=== PATIENT | female | born 1990 | race Caucasian/White ===

== ENCOUNTER 2018-05-16 14:26 | Outpatient (CLI) | payer MEDICAID ==
[~2018-05-16] VITALS: Ht 152.4 cm; Wt 78.0 kg
[2018-05-16 14:38] VITALS: BP 119/67; PULSE 95; RESP 18; Ht 152.4 cm; Wt 78.0 kg
[2018-05-16] MEDS ORDERED: PREN1TAB71 PO (14:40)
--- NOTE | 2018-05-16 16:12 | HP ---
Date/Time of Note Date/Time of Note DATE: 05/16/18 TIME: 16:08 OB - History Hx of Present Free Text/Dictation 27 YO with IUP at 34.4 weeks with EDC 06/23/2018 who was at [facility] today and her BP was 144/79. she denies headache, visual changes or RUQ pain. she reports good FM. she denies LOF per vagina or vaginal bleeding or UC. she has normal BP in L&D. UC neg for protein. S=D on sono. normal RAMESH. Category one NST, Normal labs except for anemia. I explained the PIH precautions and asked her to go back to [facility] on Saturday for BP check. Care: Good Care Ultrasounds: Normal mid trimester US Obstetrical Complications: None Medical Complications: None Past Family/Social History * Past Medical, Surgical, Family and Obstetric Histories reviewed from chart. OB Admission Exam Vital Signs Vital Signs Vital Signs Date Temp Pulse Resp B/P (MAP) Pulse Ox O2 O2 Flow FiO2 Time Delivery Rate 05/16/18 98.3 95 18 119/67 Room Air 14:38 (84) Physical Exam HEENT: WNL Heart: Rhythm Normal Lungs: Clear, Equal Abdomen: WNL Extremities: Normal Reflexes: Normal Last 72 hours Lab Results CBC & BMP 05/16/18 15:00 Liver Function Test 05/16/18 15:00 Alanine Aminotransferase (ALT/SGPT) 22 Albumin 3.4 Alkaline Phosphatase 116 Aspartate Amino Transf (AST/SGOT) 22 Direct Bilirubin 0.00 Total Protein 6.8 OB Assessment/Plan Other Assessment: IUP at 34.4 weeks. No evidence of preeclampsia Other plan: f/u at [facility] in 3 days for BP check PIH precautions given. LEATHA GARCIA MD May 16, 2018 16:12
--- NOTE | 2018-05-16 17:16 | TRIAGE ---
OB Triage Datetime Report Generated by CPN: 05/16/2018 17:16 Datetime: 05/16/2018 16:01 Stage of : OB Triage Datetime: 05/16/2018 15:52 Labor Evaluation Frequency: 0 Monitor Mode: External Pattern: Normal: <= 5 Contractions in 10 Minutes Resting Tone Slana: Relaxed Heart Rate FHR Baseline Rate: 135 Monitor Mode: External US Variability: Moderate 6-25 bpm Accelerations: 10X10 Decelerations: None Category: Category I Pain Assessment Pain Scale: 0 Pain Presence: None/Denies Pain Type: N/A Pain Goal: 3 Pain Relief Measures: Comfort Measures Datetime: 05/16/2018 14:50 Labor Evaluation Frequency: irreg Monitor Mode: External Duration (sec)2399: 50-60 Quality: Mild Pattern: Normal: <= 5 Contractions in 10 Minutes Resting Tone Slana: Relaxed Contraction Comments: pt denies any pain/ ucs Heart Rate FHR Baseline Rate: 140 Variability: Moderate 6-25 bpm Accelerations: 15X15 Decelerations: None Category: Category I Pain Presence: None/Denies Pain Type: N/A Datetime: 05/16/2018 14:34 Assessment Type: Triage Maternal Assessment Level of Consciousness: Fully Conscious DTR's/Clonus: DTRs 2+ Headache: Denies Blurred Vision: No Respiratory Effort: Unlabored; Regular Rhythm; Equal Expansion Breath Sounds, Left: Clear and Equal Breath Sounds, Right: Clear and Equal Nausea/Vomiting: Denies RUQ Epigastric Pain: Denies Lower Extremities Edema: None Degree: None Upper Extremities Edema: None Degree: None Facial Edema: None Fall Risk Assessment History of Falling: (0) No Secondary Diagnosis: (0) No Ambulatory Aid: (0) Bedrest/Nurse Assist IV Therapy: (0) No Gait: (0) Normal/Bedrest/Immobile Mental Status: (0) Oriented to Own Ability Fall Score: 0 Fall Risk Score Definition: No Risk: No action required Datetime: 05/16/2018 14:32 Time of Arrival: 05/16/2018 15:20 EGA: 34.4 Arrived By: Wheelchair Arrived From: Office Movement: Present Contractions: Denies/Absent Rupture of Membranes: Denies Vaginal Bleeding: None Vaginal Discharge: Denies Recent Sexual Intercouse: Denies Abdominal Trauma: Not Applicable Patient Complaints: None Time Provider Notified: 05/16/2018 14:50 Provider Notified: JOSE Initial Plan: R/O preeclampsia / efm/ vitals
== END 2018-05-16 16:12 | disposition home or self-care (01) ==
LOC: OBT 14:26 → L-D 14:28 → OBT 16:12
PROVIDERS: ATTEND Specialist
DX: O26.893 Other specified pregnancy related conditions, third trimester (principal); Z3A.34 34 weeks gestation of pregnancy; R10.11 Right upper quadrant pain
CPT/HCPCS: 76815; 76818; 80053; 81001; 84560; 85025; 85610; 85730; Z7500; G0463

== ENCOUNTER 2018-06-06 10:28 | Outpatient (CLI) | payer MEDICAID ==
[~2018-06-06] VITALS: Ht 152.4 cm; Wt 79.7 kg
[~2018-06-06 10:28] MED LIST: PREN1TAB71 PO
[2018-06-06 11:13] VITALS: Ht 152.4 cm; Wt 79.7 kg
[2018-06-06 11:14] VITALS: BP 122/58; PULSE 80; RESP 18
--- NOTE | 2018-06-06 13:38 | TRIAGE ---
OB Triage Datetime Report Generated by CPN: 06/06/2018 13:38 Datetime: 06/06/2018 13:23 Stage of : OB Triage Datetime: 06/06/2018 13:14 Stage of : OB Triage Datetime: 06/06/2018 12:50 Labor Evaluation Frequency: 0 Monitor Mode: External Pattern: Normal: <= 5 Contractions in 10 Minutes Resting Tone [employer]: Relaxed Heart Rate FHR Baseline Rate: 140 Monitor Mode: External US Variability: Moderate 6-25 bpm Accelerations: 10X10 Decelerations: None Category: Category I Pain Assessment Pain Scale: 0 Pain Presence: None/Denies Pain Type: N/A Pain Goal: 3 Pain Relief Measures: Comfort Measures Datetime: 06/06/2018 11:49 Labor Evaluation Frequency: 0 Monitor Mode: External Pattern: Normal: <= 5 Contractions in 10 Minutes Resting Tone [employer]: Relaxed Heart Rate FHR Baseline Rate: 135 Monitor Mode: External US Variability: Moderate 6-25 bpm Accelerations: 10X10 Decelerations: None Category: Category I Pain Assessment Pain Scale: 0 Pain Presence: None/Denies Pain Type: N/A Pain Goal: 3 Pain Relief Measures: Comfort Measures Datetime: 06/06/2018 11:04 Stage of : OB Triage Datetime: 06/06/2018 10:40 Stage of : OB Triage Assessment Type: Triage Maternal Assessment Level of Consciousness: Fully Conscious DTR's/Clonus: DTRs 2+; No Clonus Headache: Denies Blurred Vision: No Respiratory Effort: Unlabored; Regular Rhythm; Equal Expansion Breath Sounds, Left: Clear and Equal Breath Sounds, Right: Clear and Equal Nausea/Vomiting: Denies RUQ Epigastric Pain: Denies Facial Edema: None Temperature Route: Axillary Fall Risk Assessment History of Falling: (0) No Secondary Diagnosis: (0) No Ambulatory Aid: (0) Bedrest/Nurse Assist IV Therapy: (0) No Gait: (0) Normal/Bedrest/Immobile Mental Status: (0) Oriented to Own Ability Fall Score: 0 Fall Risk Score Definition: No Risk: No action required Labor Evaluation Frequency: 0 Monitor Mode: External Pattern: Normal: <= 5 Contractions in 10 Minutes Resting Tone [employer]: Relaxed Heart Rate FHR Baseline Rate: 135 Monitor Mode: External US Variability: Moderate 6-25 bpm Accelerations: 10X10 Decelerations: None Category: Category I Pain Assessment Pain Scale: 4 Pain Presence: Constant Pain Type: Ache Pain Location: Head Pain Goal: 3 Pain Relief Measures: Comfort Measures Datetime: 06/06/2018 10:38 Time of Arrival: 06/06/2018 10:26 EGA: 37.4 Arrived By: Ambulatory Arrived From: Dr. Office Chief Complaint: REFERRED FROM DR OFFICE TO R/O PIH, SLIGHT H/A, DENIES EPIGASTRIC PAIN OR DIZZINES S. DENIES LEAKING, BLEEDING OR UC'S Movement: Present Contractions: Irregular Rupture of Membranes: Denies Vaginal Discharge: Denies Recent Sexual Intercouse: Denies Abdominal Trauma: Not Applicable Patient Complaints: Headache Time Provider Notified: 06/06/2018 11:05 Provider Notified: yasharpour Initial Plan: monitor, u/a c_s, pih panel, efw, sahra Datetime: 06/06/2018 10:30 EGA: 34.4 Datetime: 05/16/2018 14:34 Fall Score: 0 Fall Risk Score Definition: No Risk: No action required Datetime: 05/16/2018 14:32 EGA: 34.4
--- NOTE | 2018-06-06 15:02 | PN ---
Triage Information Date/Time 06/06/1807/20/1457 Reason for visit: headache and f/u for high BP Weeks of Gestation 37w4d /Para Diabetes: none Hypertention: induced Objective Vital Signs Date Temp Pulse Resp B/P (MAP) Pulse Ox O2 O2 Flow FiO2 Time Delivery Rate 06/06/18 97.9 80 18 122/58 11:14 (79) Heart Rate: 150's Contractions: None Results/Medications Result Diagram: 06/06/18 1100 06/06/18 1100 Results 24 hrs Laboratory Tests Test 06/06/18 10:45 06/06/18 11:00 Urine Color YELLOW Urine Clarity SLIGHTLY CLOUDY A Urine pH 7.0 Urine Specific [place] 1.008 Urine Ketones NEGATIVE Urine Nitrite NEGATIVE Urine Bilirubin NEGATIVE Urine Urobilinogen NEGATIVE Urine Leukocyte Esterase TRACE A Urine Microscopic RBC 2 Urine Microscopic WBC 2 Urine Squamous Epithelial Cells FEW Urine Bacteria FEW A Urine Hemoglobin NEGATIVE Urine Glucose NEGATIVE Urine Total Protein NEGATIVE White Blood Count 10.2 # Red Blood Count 3.79 L Hemoglobin 10.1 L Hematocrit 32.1 L Mean Corpuscular Volume 84.7 Mean Corpuscular Hemoglobin 26.6 L Mean Corpuscular Hemoglobin Concent 31.5 L Red Cell Distribution Width 15.1 H Platelet Count 250 Mean Platelet Volume 10.7 H Immature Granulocytes % 1.700 H Neutrophils % 69.4 Lymphocytes % 18.3 Monocytes % 8.5 Eosinophils % 1.8 Basophils % 0.3 Nucleated Red Blood Cells % 0.0 Immature Granulocytes # 0.170 H Neutrophils # 7.1 Lymphocytes # 1.9 Monocytes # 0.9 Eosinophils # 0.2 Basophils # 0.0 Nucleated Red Blood Cells # 0.0 Prothrombin Time 13.3 Prothrombin Time Ratio 1.0 INR International Normalized Ratio 1.00 Activated Partial Thromboplast Time 30.3 Fibrinogen 447.0 Sodium Level 135 Potassium Level 4.0 Chloride Level 107 Carbon Dioxide Level 22 Anion Gap 6 Blood Urea Nitrogen 9 Creatinine 0.35 L Est Glomerular Filtrat Rate mL/min > 60 Glucose Level 87 Uric Acid 1.3 L Calcium Level 9.7 Total Bilirubin 0.3 Direct Bilirubin 0.00 Indirect Bilirubin 0.3 Aspartate Amino Transf (AST/SGOT) 16 Alanine Aminotransferase (ALT/SGPT) 17 Alkaline Phosphatase 124 H Total Protein 6.6 Albumin 3.3 Globulin 3.30 H Albumin/Globulin Ratio 1.00 Imaging Results BPP 8 RAMESH 15 EFW 3375 Disposition: Discharge Assessment/Plan A IUP 37w4d headache resolved GHTN normotensive P F/U on saturday triage or clinic JUAN ERNST MD Jun 06, 2018 15:02
== END 2018-06-06 13:20 | disposition home or self-care (01) ==
LOC: L-D 10:28 → OBT 10:28
PROVIDERS: ATTEND Specialist
DX: O13.3 Gestational [pregnancy-induced] hypertension without significant proteinuria, third trimester (principal); Z3A.37 37 weeks gestation of pregnancy
CPT/HCPCS: 76815; 76818; 80053; 81001; 84560; 85025; 85384; 85610; 85730; 87086; Z7500; G0463

== ENCOUNTER 2018-06-19 16:39 | Inpatient (IN) | payer MEDICAID ==
[~2018-06-19] VITALS: Ht 154.9 cm; Wt 79.5 kg
[2018-06-19 17:05] VITALS: Ht 154.9 cm; Wt 79.5 kg
[2018-06-19] MEDS ORDERED: LACTATED RINGER'S 1,000 ML IV SCH (18:50)
[2018-06-19] MEDS ORDERED: OXYTOCIN 30 UNITS/LR 500 ML IV SCH ×3 (19:00→19:30)
[2018-06-19] MEDS ORDERED: BUTORPHANOL 2 MG INJ IV PRN (19:00)
[2018-06-19] MEDS ORDERED: AMPICILLIN 2 GM/NS (PMX) 100 ML IVPB ONE (19:00)
[2018-06-19] MEDS ORDERED: OXYTOCIN 30 UNITS/LR 500 ML IV PRN ×2 (19:00→23:30)
[2018-06-19] MEDS ORDERED: LIDOCAINE 1% (MPF) 30 ML INJ INJ PRN (19:00)
[2018-06-19] MEDS ORDERED: METHYLERGONOVINE 0.2 MG INJ IM PRN ×2 (19:00→23:30)
[2018-06-19] MEDS ORDERED: CARBOPROST 250 MCG INJ IM PRN ×2 (19:00→23:30)
[2018-06-19] MEDS ORDERED: MISOPROSTOL 200 MCG TAB PR PRN ×2 (19:00→23:30)
[2018-06-19] MEDS ORDERED: AMPICILLIN 1 GM/NS (PMX) 50 ML IVPB SCH (21:00)
--- NOTE | 2018-06-19 21:34 | HP ---
Date/Time of Note Date/Time of Note DATE: 06/19/18 TIME: 21:26 OB - History Hx of Present Free Text/Dictation 27y.o at 39w3d in activelabor with intact membrane, initial VE 5/80/-2 with bulging bag EFM CAT I UC q 2-4min had unevenful course which started at 9weeks admitted for expectant management. GBS neg but wasnt avalable, so gave one dose of ampicillin. Chief Complaint: uc's Estimated Due Date: Jun 23, 2018 : 3 Para: 2 Spontaneous : 0 Therapeutic : 0 Care: Good Care Ultrasounds: Normal mid trimester US Obstetrical Complications: None Medical Complications: None Past Family/Social History * Past Medical, Surgical, Family and Obstetric Histories reviewed from chart. Blood Type: O+ Rubella: immune RPR/VDRL: Negative GBS Status: Negative HBsAG: Negative OB Admission Exam Physical Exam HEENT: WNL Heart: Rhythm Normal Lungs: Clear, Equal Abdomen: WNL Extremities: Normal Reflexes: Normal Cervical Dilatation: 5cm Effacement: Other (80) Station: -2 Membranes: Intact Amniotic Fluid: Unevaluable Heart Rate: 130's Accelerations: Accelerations Present Decelerations: No Decelerations Varibility: Moderate Contractions on Admission: < 5 Minutes Apart Intensity: Firm Last 72 hours Lab Results CBC & BMP 06/19/18 18:00 OB Assessment/Plan Reason for admission: active labor Other Assessment: IUP 39w3d Plan: Expectant Management JUAN ERNST MD Jun 19, 2018 21:34
--- NOTE | 2018-06-19 21:37 | LDN ---
Date/Time of Note Date/Time of Note DATE: 06/19/18 TIME: 21:34 Delivery Summary of normal female Weeks of Gestation 39w3d Placenta Delivered: Spontaneously Meconium: none Episiotomy: No Perineal laceration: 1 Laceration repair: 0000 ch gut Anesthesia type: None Estimated blood loss: 50 Sponge & Needle done & correct: Yes All needle counts correct: Yes Any foreign bodies felt in the: No Infant Delivery Information Sex Sex: female Apgars 1 Minute: 9 5 Minute: 9 Suctioning Nose & mouth suctioned at rivera: No Delee suction performed: No Umbilical Cord Umbilical cord with: 3 Vessels Cord presentations: no nuchal cord Cord Blood was obtained: Yes Mother & Baby Disposition Disposition Mom & Baby to Maternity; Good: Yes Mom transferred to: Other () Baby to NICU: No (ostpartum) JUAN ERNST MD Jun 19, 2018 21:37
[2018-06-19 23:00] VITALS: BP 119/60; PULSE 80; RESP 16
[2018-06-19] MEDS ORDERED: OXYCODONE/ASPIRIN (4.88/325) TAB PO PRN ×2 (23:30)
[2018-06-19] MEDS ORDERED: ZOLPIDEM 5 MG TAB PO PRN (23:30)
[2018-06-19] MEDS ORDERED: LANOLIN HPA 1 PKT TOP PRN (23:30)
[2018-06-19] MEDS ORDERED: WITCH HAZEL/GLYCERIN PAD PR PRN (23:30)
[2018-06-19] MEDS ORDERED: BENZOCAINE 20% 56 ML SPRAY TOP PRN (23:30)
[2018-06-20 00:06] VITALS: BP 119/63; PULSE 85; RESP 18
[2018-06-20] MEDS: IBUPROFEN 600 MG TAB PO SCH ×4 (00:43→17:45)
[2018-06-20 03:58] VITALS: BP 117/59; PULSE 84; RESP 18
[2018-06-20 08:00] VITALS: BP 114/56; PULSE 81; RESP 18
[2018-06-20] MEDS: SENNA/DOCUSATE NA (8.6MG/50MG) TAB PO SCH ×2 (09:21→21:25)
[2018-06-20 10:12] VITALS: BP 114/56; PULSE 81; RESP 18
[2018-06-20 16:26] VITALS: BP 111/58; PULSE 77; RESP 18
--- NOTE | 2018-06-20 18:28 | DS ---
Date/Time of Note Date/Time of Note DATE: 06/20/18 TIME: 18:28 Obstetrical Discharge Record Final Diagnosis Final Diagnosis: Term delivered Vaginal Delivery Obstetrical Delivery: Spontaneous Complications Augmentation: No Induction: Yes Rupture of Membranes: No Condition on Discharge Physical Assessment Voiding: Yes Bowel Movement: Yes Breast: Soft, non-tender, Filling Fundus: Firm Abdomen and Incision: soft, not tender Calf Tenderness: Yes Patient Condition: Good LEATHA GARCIA MD Jun 20, 2018 18:28
[2018-06-20 20:00] VITALS: BP 122/75; PULSE 85; RESP 16
[2018-06-21] MEDS: IBUPROFEN 600 MG TAB PO SCH ×2 (00:25→05:56)
[2018-06-21 04:13] VITALS: BP 96/51; PULSE 66; RESP 20
[2018-06-21 08:00] VITALS: BP 104/53; PULSE 74; RESP 18
[2018-06-21] MEDS: SENNA/DOCUSATE NA (8.6MG/50MG) TAB PO SCH (08:59)
[2018-06-21] MEDS ORDERED: DIPHTH/TET/ACEL PERTUSS (ADULT) 0.5 ML VIAL IM* ONE (09:00)
--- NOTE | 2018-06-21 11:00 | PN ---
Date/Time of Note Date/Time of Note DATE: 06/21/18 TIME: 10:58 OB Subjective Subjective Subjective . Reports decreased vaginal bleeding. No complaint. Ambulating. Urinated. Denies any dizziness or lightheadedness. Breast-feeding. OB Objective Objective Objective General appearance: Alert and oriented x4 does not appear to be in any acute distress Abdomen: Soft, fundus palpable and firm and nontender at the level of umbilicus Extremities: No calf tenderness, no click no edema no cord palpable Breast: No evidence of mastitis or fissure VS - Last 72 Hours, by Label Date Temp Pulse Resp B/P (MAP) Pulse Ox O2 O2 Flow FiO2 Time Delivery Rate 06/21/18 97.7 66 20 96/51 (66) Room Air 04:13 06/20/18 97.7 85 16 122/75 Room Air 20:00 (91) 06/20/18 97.7 77 18 111/58 Room Air 16:26 (75) 06/20/18 98.5 81 18 114/56 Room Air 08:00 (75) 06/20/18 98.6 84 18 117/59 Room Air 03:58 (78) 06/20/18 98.6 85 18 119/63 Room Air 00:06 (81) 06/19/18 98.7 80 16 119/60 Room Air 23:00 (79) CBC & BMP 06/19/18 18:00 06/20/18 06:39 OB Assessment/Plan Other Assessment: Post day #2 Mild leukocytosis, reactive likely related to , asymptomatic, no risk factor Afebrile. Stable for discharge home today Follow-up at 6 weeks with primary OB office or sooner as needed SHANTI TRUJILLO MD Jun 21, 2018 11:00
--- NOTE | 2018-06-22 13:24 | DELSUM ---
Delivery Summary A-C Datetime Report Generated by CPN: 06/22/2018 13:23 DELIVERY PERSONNEL [employer] In [employer]: Michael, Risa MATERNAL INFORMATION Delivery Anesthesia: None Medications in Delivery: LR WITH 30 UNITS OF PITOCIN Delivery QBL (ml): 50 Placenta Cultured: No Maternal Complications: None LABOR SUMMARY EDC: 06/23/2018 00:00 No. Babies in Womb: 1 Attempted: No Labor Anesthesia: None LABOR INFORMATION Reason for Induction: Not Applicable Onset of Labor: 06/19/2018 12:00 Complete Dilatation: 06/19/2018 21:00 Oxytocin: N/A Group B Beta Strep: Done, Result Unknown Antibiotics # of Doses: AMPICILLIN 2 GRAMS Antibiotics Time of Last Dose: 06/19/2018 19:46 Steroids Given: None Reason Steroids Not Administered: Not Applicable MEMBRANES Membranes Rupture Method: Artificial Rupture of Membranes: 06/19/2018 21:10 Length of Rupture (hr): 0.02 Amniotic Fluid Color: Clear Amniotic Fluid Amount: Large Amniotic Fluid Odor: None STAGES OF LABOR Stage 1 hr: 9 Stage 1 min: 0 Stage 2 hr: 0 Stage 2 min: 11 Stage 3 hr: 0 Stage 3 min: 5 Total Time in Labor hr: 9 Total Time in Labor min: 16 VAGINAL DELIVERY Episiotomy: None Laceration Extension: First Degree Laceration Type: Perineal Initial Vag Sponge Count: 10 Final Vag Sponge Count: 10 Initial Vag Sharps Count: 1 Final Vag Sharps Count: 2 Sponge Count Correct: Yes Sharps Count Correct: Yes BABY A INFORMATION Delivery Date/Time: 06/19/2018 21:11 Method of Delivery: Vaginal Born in Route : No : N/A Forceps: N/A Vacuum Extraction: N/A Shoulder Dystocia : N/A SHOULDER DYSTOCIA BABY A Infant Delivery Date/Time: 06/19/2018 21:11 PRESENTATION/POSITION BABY A Presentation: Cephalic Cephalic Presentation: Vertex Vertex Position: Left Occipital Anterior Breech Presentation: N/A PLACENTA INFORMATION BABY A Placenta Delivery Time : 06/19/2018 21:16 Placenta Method of Delivery: Spontaneous Placenta Status: Delivered SCORES BABY A Heart Rate 1 min: >100 bpm Resp Effort 1 min: Good Cry Reflex Irritability 1 min: Cough/Sneeze/Pulls Away Muscle Tone 1 min: Active Motion Color 1 min: Body [place], Extremit Blue Resuscitation Effort 1 min: Tactile Stimulation SCORE 1 MIN: 9 Heart Rate 5 min: >100 bpm Resp Effort 5 min: Good Cry Reflex Irritability 5 min: Cough/Sneeze/Pulls Away Muscle Tone 5 min: Active Motion Color 5 min: Body [place], Extremit Blue Resuscitation Effort 5 min: Tactile Stimulation SCORE 5 MIN: 9 INFANT INFORMATION BABY A Gestational Age at Delivery: 39.3 Gestational Status: Full Term- 39- 40.6 Weeks Outcome : Liveborn Condition : Stable Infant Sex: Female IDENTIFICATION/MEDS BABY A ID Band Number: [id number] Sensor Applied: Yes Sensor Number: [id number] Sensor Location : Cord Clamp Vitamin K Given : Not Given Erythromycin Given: Not Given WEIGHT/LENGTH BABY A Birthweight (gm): 3370 Weight (lb): 7 Weight (oz): 7 Length (in): 19.50 Infant Length (cm): 49.53 CORD INFORMATION BABY A No. Cord Vessels: 3 Nuchal Cord : N/A Cord Blood Taken: Yes Suction: Mouth; Nose ASSESSMENT BABY A Complications: None Physical Findings at Delivery: Within Normal Limits Infant Respirations: Appears Normal Engine Research Engineer/ALS Called : No Care By: Sindy BEEBE Transferred To: Remains with Mother
== END 2018-06-21 13:00 | disposition home or self-care (01) | DRG 807 ==
LOC: OBT 16:39 → L-D 16:40 → OBT 17:30 → L-D 20:56 → PP1 23:04
PROVIDERS: ADMIT Specialist; ATTEND Specialist
PROC: 10E0XZZ Delivery of Products of Conception, External Approach (ICD-10-PCS; principal; 2018-06-19)
PROC: 0HQ9XZZ Repair Perineum Skin, External Approach (ICD-10-PCS; 2018-06-19)
DX: O70.0 First degree perineal laceration during delivery (principal); Z37.0 Single live birth; Z3A.39 39 weeks gestation of pregnancy; D72.829 Elevated white blood cell count, unspecified
CPT/HCPCS: 85025; 85610; 85730; 86592; 86850; 86900; 86901; 87340; G0463; J0290; J0595; J2590; J7120